=== PATIENT | male | born 1980 | race Caucasian/White ===

== ENCOUNTER 2018-02-19 05:30 | Day surgery (SDC) | payer MEDICAID ==
[~2018-02-19] VITALS: Ht 175.3 cm; Wt 88.0 kg
[2018-02-19] MEDS ORDERED: ONDANSETRON HCL 4 MG/2 ML VIAL IVP ONE ×2 (07:18→08:15)
[2018-02-19] MEDS ORDERED: LIDOCAINE 1% 10 MG/ML, 20 ML MDV INJ ONE (07:18)
[2018-02-19] MEDS ORDERED: VECURONIUM BROMIDE 10 MG/VIAL (NORCURON) IV ONE (07:18)
[2018-02-19] MEDS ORDERED: MIDAZOLAM HCL 5 MG/5 ML VIAL IVP ONE (07:18)
[2018-02-19] MEDS ORDERED: GLYCOPYRROLATE 0.2 MG/ML VIAL IJ ONE (07:18)
[2018-02-19] MEDS ORDERED: NEOSTIGMINE METHYLSULFATE 1 MG/ML, 10 ML VIAL IVP ONE (07:18)
[2018-02-19] MEDS ORDERED: SEVOFLURANE 15 MIN GAS INH ONE (07:18)
[2018-02-19] MEDS ORDERED: NS IRRIG SOLN 1000 ML IR ONE (07:18)
[2018-02-19] MEDS ORDERED: PROPOFOL 200MG/ 20ML VIAL (DIPRIVAN) IV ONE (07:18)
[2018-02-19] MEDS ORDERED: fentaNYL CITRATE 250 MCG/5 ML AMP IV ONE (07:18)
[2018-02-19] MEDS ORDERED: LR 1,000 ML IV.SOLN IV ONE (07:18)
[2018-02-19] MEDS ORDERED: DEXAMETHASONE SOD PHOSPHATE 4 MG/ML VIAL IVP ONE (07:18)
[2018-02-19] MEDS ORDERED: BUPIVACAINE /PF 0.25% 30 ML VIAL INJ ONE (07:18)
[2018-02-19] MEDS ORDERED: SUCCINYLCHOLINE CHLORIDE 20 MG/ML(QUELICIN) IVP ONE (07:18)
[2018-02-19] MEDS ORDERED: MIDAZOLAM HCL 5 MG/5 ML VIAL IVP PRN (08:15)
[2018-02-19] MEDS ORDERED: NALOXONE HCL 0.4 MG/ML AMP (NARCAN) IVP ONE (08:15)
[2018-02-19] MEDS ORDERED: MORPHINE 4 MG/ML INJ. SYRINGE IVP PRN (08:15)
[2018-02-19] MEDS ORDERED: fentaNYL CITRATE/PF 100 MCG/2 ML AMP IVP PRN (08:15)
[2018-02-19] MEDS ORDERED: MEPERIDINE HCL/PF 25 MG/ML DISP.SYRIN IVP PRN (08:15)
[2018-02-19] MEDS ORDERED: MORPHINE 4 MG/ML INJ. SYRINGE ONE (08:58)
[2018-02-19 09:50] VITALS: BP_SYST 140
== END 2018-02-19 11:00 | disposition home or self-care (01) ==
LOC: SDS 05:30 → SMU 05:30 → SDS 11:00
PROVIDERS: ATTEND Otolaryngology
DX: J35.01 Chronic tonsillitis (principal); E66.9 Obesity, unspecified; G43.909 Migraine, unspecified, not intractable, without status migrainosus; Z68.26 Body mass index [BMI] 26.0-26.9, adult
CPT/HCPCS: 42826; 88304; J0330; J1100; J2001; J2250; J2270; J2405; J2704; J2710; J3010; J3490 ×3; J7120